=== PATIENT | female | born 1965 | race Caucasian/White ===

== ENCOUNTER → 2016-06-09 | Day surgery (SDC) | payer MEDICAID, OTHER ==
[~2016-06-09] VITALS: Ht 172.7 cm; Wt 65.5 kg
[~2016-06-09] MED LIST: CIPR-9 PO; CIPROFLOXACIN 400 MG PREMIX 200 ML ONE; LACTATED RINGER'S 1000 ML INJ 1,000 ML ONE; MIDAZOLAM HCL 5 MG/ML VIAL (1 ML) ONE; PROMETHAZINE INJ 25 MG/ML VIAL ONE; PROPOFOL 200 MG/20 ML AMP IV ONE
[2016-06-09 07:01] LABS: HEMATOCRIT 36.5 % (35.0-46.0); MEAN CELL VOLUME 96.4 FL (80.0-100.0); MEAN CORPUSCULAR HEMOGLOBIN 32.7 PG (27.0-34.0); MEAN CORPUSCULAR HGB CONC 33.9 % (32.0-36.0); PLATELET COUNT 274 TH/MM3 (150-450); RED BLOOD COUNT 3.79 MIL/MM3 (4.00-5.30); REVIEW FLAG FINAL; WHITE BLOOD COUNT 8.7 TH/MM3 (4.0-11.0)
--- NOTE | 2016-06-09 07:02 | RADRPT ---
EXAM DATE/TIME: 06/09/2016 06:41 [facility] COMPARISON: ABDOMEN KUB ONLY, May 14, 2015, 8:49. INDICATIONS : Left side kidney stones. Pre op lithotripsy. MEDICAL HISTORY : Renal calculi. SURGICAL HISTORY : ureteral stents ENCOUNTER: Initial ACUITY: 1 month PAIN SCORE: 0/10 LOCATION: Left flank FINDINGS: Supine view of the abdomen was performed. The abdominal bowel gas pattern is normal. There is a 7 mm calcification overlying the midpole of the left kidney adjacent to the stent. There is a left sided double-J stent in good position. The bony structures are intact. Otherwise no significant changes com pared to the prior study. CONCLUSION: 1. Left sided double-J stent appears to be in good position. 2. Oval-shaped 7 mm left-sided renal calculus overlying mid pole of kidney. The stone is adjacent to the proximal double-J stent. Rl Rivero MD on June 09, 2016 at 6:58 Board Certified Radiologist. This report was verified electronically.
[2016-06-09 07:30] VITALS: BP 96/64; PULSE 62; RESP 16; TEMP 98.5; O2SAT 100
[2016-06-09 11:40] VITALS: BP 126/67; PULSE 55; RESP 16; TEMP 98.1; O2SAT 100
--- NOTE | 2016-06-09 22:44 | EKG ---
Date Performed: 06/09/2016 Time Performed: 08:01:39 PTAGE: 50 years EKG: Sinus rhythm EARLY REPOLARIZATION BORDERLINE ECG PREVIOUS TRACING : 05/14/2015 09.46 DOCTOR: Sid Wright Interpretating Date/Time 06/09/2016 22:41:58
--- NOTE | 2016-06-10 12:20 | MP ---
cc: KRISTIE LAMAS DATE OF SURGERY 06/09/2016 PREOPERATIVE DIAGNOSIS 7-mm left renal stone. POSTOPERATIVE DIAGNOSIS 7-mm left renal stone. PROCEDURE Left extracorporeal shock wave lithotripsy. SURGEON MD Kamlesh ANESTHESIA TIVA. FLUIDS 500 cc of crystalloid. ESTIMATED BLOOD LOSS No blood loss. COMPLICATIONS No complications. FINDINGS Good fragmentation of the stone was visualized under fluoroscopic imaging. CONDITION She tolerated the procedure well and was transferred to the recovery room in stable condition. INDICATIONS FOR PROCEDURE Antonietta Hartmann is a 50-year-old female with a history of left-sided nephrolithiasis. She underwent cystoscopy with left double-J stent insertion followed by left extracorporeal shock wave lithotripsy in the past. The stone did not break up entirely and the plan was to repeat ESWL to see if the stone would be broken up this way as this is the least invasive type of procedure. The risks and benefits were discussed including bleeding, infection and she was willing to proceed. PROCEDURE The patient was brought to the operating room, identified by myself as Antonietta Hartmann. She was placed in the supine position on the operating room table. She received preprocedure antibiotics and TIVA anesthesia was administered. Under fluoroscopic imaging guidance, the stone was localized and then ESWL therapy commenced. Initially at a power level of 15 and a shock rate of 60, ESWL commenced. The power level was then increased to a level of 20 and the shock level remained at 60 cm. At one point it was increased to 120 and then reduced back to 60. A total of 3000 shocks were given and some spreading of the stone was visualized under fluoroscopic imaging guidance. She tolerated the procedure well and was awoken and transferred to Recovery in stable condition. INSTRUCTIONS She will follow up in two weeks and obtain a KUB x-ray prior. If the stone fragments are still present, she will need to undergo left ureteroscopy and laser lithotripsy with stone extraction. Kristie DIA/SSB /10:03 AM /12:14 PM
== END | disposition home or self-care (01) ==
LOC: CSDC 06:10
PROVIDERS: ATTEND Urology
DX: N20.0 Calculus of kidney (principal); R94.31 Abnormal electrocardiogram [ECG] [EKG]; J45.909 Unspecified asthma, uncomplicated
CPT/HCPCS: 00873; 36415; 50590; 74000; 85027; 93005; J0744; J2250; J2550; J7120

== ENCOUNTER 2016-06-29 07:56 | Emergency (ER) | payer OTHER, MEDICAID ==
[~2016-06-29] VITALS: Ht 172.7 cm; Wt 60.0 kg
[~2016-06-29 07:56] MED LIST changes: -CIPROFLOXACIN 400 MG PREMIX 200 ML ONE; -LACTATED RINGER'S 1000 ML INJ 1,000 ML ONE; -MIDAZOLAM HCL 5 MG/ML VIAL (1 ML) ONE; -PROMETHAZINE INJ 25 MG/ML VIAL ONE; -PROPOFOL 200 MG/20 ML AMP IV ONE
[2016-06-29 08:00] VITALS: BP 115/85; PULSE 69; RESP 14; TEMP 97.4; O2SAT 100
[2016-06-29 09:09] LABS: BACTERIA, URINE FEW /hpf; BLOOD, URINE MOD (NEG); GLUCOSE,URINE NEG (NEG); KETONE, URINE NEG (NEG); NITRITE,URINE NEG (NEG); SQUAMOUS EPITHELIAL CELL URINE 1 /hpf (0-5)
[2016-06-29 09:10] LABS: COMMENT (UR) CULTURE INDICATED; CULTURE IF INDICATED CULTURE INDICATED; URINE COLOR LIGHT-RED (YELLW/STRAW)
[2016-06-29] MEDS ORDERED: SODIUM CHLOR 0.9% 1000 ML INJ 1,000 ML IV ONE (10:15)
--- NOTE | 2016-06-29 10:25 | PD ---
HPI Chief Complaint: Flank/Kidney Pain Time Seen by Provider: 10:05 Travel History International Travel<30 days: No Contact w/Intl Traveler<30days: No Traveled to known affect area: No History of Present Illness HPI 50-year-old female states she had a stent placed by Dr. Whitlock 3 months ago and lithotripsy one month ago and has been having a couple day history of burning when she urinates and back pain again. She states that she lives in [place] but given her specialist was here she elected to come here. Quality of pain is sharp. Severity is moderate. Pain is worse with movement. She denies other modifying factors. She denies other concurrent complaints. PFSH Past Medical History Cancer: No Cardiovascular Problems: No Diabetes: No Endocrine: Yes (thyroid issues,no meds) Genitourinary: No Hepatitis: No Hiatal Hernia: No Immune Disorder: No Musculoskeletal: Yes (OSTEOPOROSIS) Neurologic: No Psychiatric: No Reproductive: No Respiratory: Yes (ASTHMA ) Thyroid Disease: No ?: Not Past Surgical History AICD: No Body Medical Devices: stent in l side Genitourinary Surgery: Yes (LITHOTRIPSY) Gynecologic Surgery: Yes (TL, D&C) Joint Replacement: No Pacemaker: No Social History Tobacco Use: Yes Allergies-Medications (Allergen,Severity, Reaction): Coded Allergies: Aleve (Verified Allergy, Severe, face tongue and lips swell, 06/09/16) Codeine (Verified Allergy, Severe, hyperactivity, 06/09/16) Lortab (Verified Allergy, Severe, Nausea/Vomiting, 06/09/16) Penicillin (Verified Allergy, Severe, unknown, 06/09/16) Reported Meds & Prescriptions Reported Meds & Active Scripts Active Cipro (Ciprofloxacin HCl) 500 Mg Tab 500 Mg PO BID 7 Days Review of Systems Except as stated in HPI: all other systems reviewed are Neg Physical Exam Narrative GENERAL: Well-nourished, well-developed patient. SKIN: Warm and dry. HEAD: Normocephalic and atraumatic. EYES: No injection or drainage. ENT: No nasal drainage noted. NECK: Supple, trachea midline. CARDIOVASCULAR: Regular rate and rhythm RESPIRATORY: no increased effort. No accessory muscle use. GASTROINTESTINAL: Abdomen soft, non-tender, nondistended. EXTREMITIES: No edema. BACK: Nontender without obvious deformity in midline, left mid lateral back pain. NEUROLOGICAL: Awake and alert. Motor and sensory grossly within normal limits. Normal speech. Data Data Last Documented VS Vital Signs Date Time Temp Pulse Resp B/P Pulse Ox O2 Delivery O2 Flow Rate FiO2 06/29/16 11:06 57 20 103/51 100 Room Air 06/29/16 08:00 97.4 Orders Urinalysis - C+S If Indicated (06/29/16 08:24) Urine Culture (06/29/16 08:30) Complete Blood Count With Diff (06/29/16 10:10) Basic Metabolic Panel (Bmp) (06/29/16 10:10) Iv Access Insert/Monitor (06/29/16 10:10) Abdomen, Kub Only (06/29/16 ) Sodium Chlor 0.9% 1000 Ml Inj (Ns 1000 M (06/29/16 10:15) Labs Laboratory Tests Test 06/29/16 06/29/16 08:30 10:25 Urine Color LIGHT-RED Urine Turbidity HAZY Urine pH 6.0 Urine Specific [place] 1.018 Urine Protein 100 mg/dL Urine Glucose (UA) NEG mg/dL Urine Ketones NEG mg/dL Urine Occult Blood MOD Urine Nitrite NEG Urine Bilirubin NEG Urine Urobilinogen LESS THAN 2.0 MG/DL Urine Leukocyte Esterase LARGE Urine RBC /hpf Urine WBC /hpf Urine WBC Clumps FEW Urine Squamous Epithelial 1 /hpf Cells Urine Bacteria FEW /hpf Microscopic Urinalysis Comment CULTURE INDICATED White Blood Count 6.8 TH/MM3 Red Blood Count 3.68 MIL/MM3 Hemoglobin 11.9 GM/DL Hematocrit 35.8 % Mean Corpuscular Volume 97.2 FL Mean Corpuscular Hemoglobin 32.4 PG Mean Corpuscular Hemoglobin 33.3 % Concent Red Cell Distribution Width 13.3 % Platelet Count 271 TH/MM3 Mean Platelet Volume 8.0 FL Neutrophils (%) (Auto) 49.2 % Lymphocytes (%) (Auto) 42.6 % Monocytes (%) (Auto) 6.0 % Eosinophils (%) (Auto) 1.4 % Basophils (%) (Auto) 0.8 % Neutrophils # (Auto) 3.3 TH/MM3 Lymphocytes # (Auto) 2.9 TH/MM3 Monocytes # (Auto) 0.4 TH/MM3 Eosinophils # (Auto) 0.1 TH/MM3 Basophils # (Auto) 0.1 TH/MM3 CBC Comment DIFF FINAL Differential Comment Sodium Level 142 MEQ/L Potassium Level 4.0 MEQ/L Chloride Level 105 MEQ/L Carbon Dioxide Level 29.3 MEQ/L Anion Gap 8 MEQ/L Blood Urea Nitrogen 15 MG/DL Creatinine 0.84 MG/DL Estimat Glomerular Filtration 71 ML/MIN Rate Random Glucose 96 MG/DL Calcium Level 11.2 MG/DL MDM Medical Decision Making Medical Screen Exam Complete: Yes Emergency Medical Condition: Yes Medical Record Reviewed: Yes (pmh confirmed) Interpretation(s) CBC & BMP Diagram 06/29/16 10:25 Last 24 hours Impressions Abdomen X-Ray 06/29/16 0000 Signed Impressions: Service Date/Time: Wednesday, June 29, 2016 10:28 - CONCLUSION: 1. 12 mm calcification on upper left stent could be 2 adjacent calculi likely within the renal pelvis or upper ureter. 2. No right-sided renal calculi. Rod Hastings MD Differential Diagnosis Stone, stent pain, renal failure, UTI Narrative Course Will check blood work, urinalysis, kub and reeval ed workup with uti with stones and stent history, will discuss with her urologist Patient denies any new complaints, all questions answered. Patient knows that follow up is incumbent on them and to return to the emergency room immediately if new or worsening symptoms develop. Patient given strict return precautions, vitals reviewed and are normal, agrees to further workup as an outpatient. states has had cipro in past without difficulty Physician Communication Physician Communication dr rodriguez states to place on cipro or bactrim and follow in office Diagnosis Primary Impression: UTI (urinary tract infection) Qualified Code: N39.0 - Urinary tract infection with hematuria, site unspecified Additional Impression: History of renal stent Patient Instructions: General Instructions Additional Instructions: return as needed, follow with dr whitlock this week, tylenol as needed Med/Other Pt SpecificInfo: Prescription(s) given Scripts Ciprofloxacin (Cipro)500 Mg [id number] Mg PO BID 7 Days Ref 0 Prov:Eli Sutherland MD 06/29/16 Disposition: 01 DISCHARGE HOME Condition: Stable Eli Sutherland MD Jun 29, 2016 10:25
[2016-06-29 10:37] LABS: AUTOMATED NEUTROPHIL # 3.3 TH/MM3 (1.8-7.7); BASOPHIL # 0.1 TH/MM3 (0-0.2); BASOPHIL % 0.8 % (0.0-2.0); EOSINOPHIL # 0.1 TH/MM3 (0-0.4); EOSINOPHIL % 1.4 % (0.0-4.0); HEMATOCRIT 35.8 % (35.0-46.0); HEMO FLAGS DIFF FINAL; LYMPH % 42.6 % (9.0-44.0); LYMPHOCYTE # 2.9 TH/MM3 (1.0-4.8); MEAN CELL VOLUME 97.2 FL (80.0-100.0); MEAN CORPUSCULAR HEMOGLOBIN 32.4 PG (27.0-34.0); MEAN CORPUSCULAR HGB CONC 33.3 % (32.0-36.0); NEUT % 49.2 % (16.0-70.0); PLATELET COUNT 271 TH/MM3 (150-450); RED BLOOD COUNT 3.68 MIL/MM3 (4.00-5.30); RED CELL DISTRIBUTION WIDTH 13.3 % (11.6-17.2); WHITE BLOOD COUNT 6.8 TH/MM3 (4.0-11.0)
--- NOTE | 2016-06-29 10:55 | RADRPT ---
EXAM DATE/TIME: 06/29/2016 10:28 [facility] COMPARISON: ABDOMEN KUB ONLY, June 09, 2016, 6:41. INDICATIONS : Patient states she has a kidney infection. MEDICAL HISTORY : Renal calculi SURGICAL HISTORY : ureteral stents ENCOUNTER: Initial ACUITY: 1 day PAIN SCORE: 3/10 LOCATION: Left Abdomen. FINDINGS: Supine view of the abdomen was performed. Left-sided nephroureteral stent. Focal calcification on the proximal left stent. This may be related to adjacent calculi. No right-sided renal calculi. Copious amount of stool. Surgical clips are seen in the pelvis The osseous structures are unremarkable. CONCLUSION: 1. 12 mm calcification on upper left stent could be 2 adjacent calculi likely within the renal pelvis or upper ureter. 2. No right-sided renal calculi. Rod Hastings MD on June 29, 2016 at 10:51 Board Certified Radiologist. This report was verified electronically.
[2016-06-29 10:56] LABS: BICARBONATE 29.3 MEQ/L (21.0-32.0)
[2016-06-29 11:06] VITALS: BP 103/51; PULSE 57; RESP 20; O2SAT 100
[2016-06-29] MEDS ORDERED: CIPR-9 PO (12:28)
== END 2016-06-29 12:50 | disposition home or self-care (01) ==
LOC: NEPC 07:56
DX: N39.0 Urinary tract infection, site not specified (principal)
CPT/HCPCS: 74000; 80048; 81001; 85025; 87086; 96360; 99283; J7030